=== PATIENT | female | born 1945 | race Caucasian/White ===

== ENCOUNTER → 2017-04-19 | Outpatient (CLI) | payer MEDICARE | END | disposition home or self-care (01) | LOC: CFH 09:03 | PROVIDERS: ATTEND Orthopaedic Surgery | DX: S83.281A Other tear of lateral meniscus, current injury, right knee, initial encounter (principal); M94.261 Chondromalacia, right knee; M25.461 Effusion, right knee; X58.XXXA Exposure to other specified factors, initial encounter; Y93.89 Activity, other specified; Y92.89 Other specified places as the place of occurrence of the external cause; Y99.8 Other external cause status ==

== ENCOUNTER → 2017-05-19 | Outpatient (CLI) | payer MEDICARE ==
[2017-05-19 09:21] LABS: BASOPHILS # (AUTO) 0.04 x10^3/uL (0-0.1); BASOPHILS % (AUTO) 1 % (0-1); EOSINOPHILS # (AUTO) 0.25 x10^3/uL (0-0.4); EOSINOPHILS % (AUTO) 3 % (1-7); LYMPHOCYTES % (AUTO) 23 % (22-44); MD NO; MEAN CORPUSCULAR HEMOGLOBIN 30.6 pg (27.0-34.8); MEAN CORPUSCULAR HGB CONC 34.1 g/dL (32.4-35.8); MEAN CORPUSCULAR VOLUME 89.8 fL (80-100); MEAN PLATELET VOLUME 9.1 fL (7.4-10.4); MONOCYTES # (AUTO) 0.64 x10^3/uL (0.2-0.8); MONOCYTES % (AUTO) 8 % (2-9); NEUTROPHILS # (AUTO) 5.59 x10^3/uL (1.8-6.8); NEUTROPHILS % (AUTO) 66 % (42-75); PLATELET COUNT 283 x10^3/uL (130-400); RED BLOOD COUNT 5.11 x10^6/uL (3.82-5.3); RED CELL DISTRIBUTION WIDTH 12.5 % (9.6-15.2)
[2017-05-19 09:31] LABS: MICROSCOPIC AUTO
[2017-05-19 09:35] LABS: ANION GAP 5 mmol/L (5-15); CALCIUM 9.4 mg/dL (8.5-10.1); CHLORIDE 107 mmol/L (98-107); CREATININE 0.84 mg/dL (0.55-1.02)
[2017-05-19 09:46] LABS: CULTURE INDICATED? YES
[2017-05-19 09:49] LABS: INTERNATIONAL NORMALIZED RATIO 0.98 (0.93-1.1); PROTHROMBIN TIME 10.1 Seconds (9.6-11.5)
[2017-05-19 12:16] LABS: HEMOGLOBIN A1C 5.8 % (4.2-6.3)
== END | disposition home or self-care (01) ==
LOC: STAR 08:16
PROVIDERS: ATTEND Orthopaedic Surgery
DX: Z01.818 Encounter for other preprocedural examination (principal); M17.11 Unilateral primary osteoarthritis, right knee
CPT/HCPCS: 36415; 80048; 81001; 83036; 85025; 85610; 85730; 87077; 87081; 87086; 87147; 87186; 87806; 93005; G0475

== ENCOUNTER 2017-05-29 09:14 | Inpatient (IN) | payer MEDICARE ==
[~2017-05-29] VITALS: Ht 157.5 cm; Wt 25.0 kg
[~2017-05-29 09:14] MED LIST: EPINEPHRINE 1 MG/ML, 1ML ONE; KETOROLAC 60 MG/2 ML ONE; ROPIvacaine/PF 0.2%, 20 ML ONE; TRANEXAMIC ACID 100 MG/ML, 10ML ONE
[2017-05-29] MEDS ORDERED: LACTATED RINGERS 1,000 ML IV SCH (10:25)
[2017-05-29] MEDS ORDERED: FENTANYL PF 100 MCG/2ML ONE (10:26)
[2017-05-29] MEDS ORDERED: MIDAZOLAM 1 MG/ML, 2ML ONE (10:26)
[2017-05-29] MEDS ORDERED: ONDANSETRON 2MG/ML, 2ML ONE (10:27)
[2017-05-29] MEDS ORDERED: LIDOCAINE 2%, 10ML ONE (10:27)
[2017-05-29] MEDS ORDERED: DEXAMETHASONE 4 MG/ML, 1ML ONE (10:27)
[2017-05-29] MEDS ORDERED: PROPOFOL 10 MG/ML, 20ML ONE (10:27)
[2017-05-29] MEDS ORDERED: BUPIVACAINE/PF 0.25% ONE (10:27)
[2017-05-29] MEDS ORDERED: CEFAZOLIN 1,000 MG ONE (10:27)
[2017-05-29] MEDS ORDERED: ACETAMINOPHEN 500 MG TABLET PO ONE (10:30)
[2017-05-29] MEDS ORDERED: VANCOMYCIN PER PHARMACY MC PRN (10:30)
[2017-05-29] MEDS ORDERED: ONDANSETRON ODT 8 MG PO ONE (10:30)
[2017-05-29] MEDS ORDERED: GABAPENTIN 300 MG CAPSULE PO ONE (10:30)
[2017-05-29] MEDS ORDERED: LIDOCAINE-MPF 1%, 2ML INFIL ONE (10:30)
[2017-05-29] MEDS ORDERED: NITR100C PO (10:43)
[2017-05-29] MEDS ORDERED: MUPI22OI2 NS (10:43)
[2017-05-29] MEDS ORDERED: VANCOMYCIN 1,200 MG in SODIUM CHLORIDE 0.9% 250 ML IV ONE (11:00)
[2017-05-29] MEDS ORDERED: PHARMACOKINETIC CONSULTATION MC ONE (11:00)
[2017-05-29] MEDS ORDERED: SCOPOLAMINE PATCH, 1.5MG PATCH.TD72 TD ONE ×2 (11:08→11:30)
[2017-05-29] MEDS ORDERED: HYDROmorphone 1 MG/ML, 1ML IV PRN (11:30)
[2017-05-29] MEDS ORDERED: ONDANSETRON 2MG/ML, 2ML IV PRN (11:30)
[2017-05-29] MEDS ORDERED: DIPHENHYDRAMINE 50 MG CAPSULE PO PRN (11:30)
[2017-05-29] MEDS ORDERED: ACETAMINOPHEN 650 MG/20.3 ML UDC PO PRN (11:30)
[2017-05-29] MEDS ORDERED: SENNA/DOCUSATE TABLET PO PRN (11:30)
[2017-05-29] MEDS ORDERED: ALUMINUM/MAG/SIMETHICONE 30 ML UDC PO PRN (11:30)
[2017-05-29] MEDS ORDERED: ONDANSETRON 4 MG TABLET PO PRN (11:30)
[2017-05-29] MEDS ORDERED: MAGNESIUM HYDROXIDE 8%, 30ML UDC PO PRN (11:30)
[2017-05-29] MEDS ORDERED: DIAZEPAM 5 MG TABLET PO PRN (11:30)
[2017-05-29] MEDS ORDERED: MEPERIDINE/PF 50 MG/ML ONE (11:55)
[2017-05-29] MEDS ORDERED: FENTANYL PF 100 MCG/2ML IV PRN (12:00)
[2017-05-29] MEDS ORDERED: ALBUTEROL SULFATE 2.5 MG/3 ML NPPB PRN (12:00)
[2017-05-29] MEDS ORDERED: OXYcodone 5 MG/5 ML ORAL.SOL UDC PO PRN (12:00)
[2017-05-29] MEDS ORDERED: MIDAZOLAM 1 MG/ML, 2ML IV PRN (12:00)
[2017-05-29] MEDS ORDERED: morphine SULFATE 10 MG/ML, 1ML IV PRN (12:00)
[2017-05-29] MEDS ORDERED: ONDANSETRON 2MG/ML, 2ML IVPush PRN (12:00)
[2017-05-29] MEDS ORDERED: ALBUTEROL/IPRATROPIUM 2.5MG/0.5MG, 3 ML NPPB PRN (12:00)
[2017-05-29] MEDS ORDERED: MEPERIDINE/PF 25MG/0.5ML IVPush PRN (12:00)
[2017-05-29] MEDS ORDERED: LABETALOL 5MG/ML, 20ML IV PRN (12:00)
[2017-05-29] MEDS ORDERED: DIAZEPAM 5 MG/ML, 2ML IVPush PRN (12:00)
[2017-05-29] MEDS ORDERED: LORazepam 2 MG/ML, 1ML IVPush PRN (12:00)
[2017-05-29] MEDS ORDERED: PROMETHAZINE 25 MG/ML, 1ML IV PRN (12:00)
[2017-05-29] MEDS ORDERED: hydrALAzine 20 MG/ML, 1ML IV PRN (12:00)
[2017-05-29] MEDS ORDERED: TRANEXAMIC ACID 1,000 MG in SODIUM CHLORIDE 0.9% 100 ML IVPB ONE (13:00)
[2017-05-29] MEDS: D5%-0.45NACL+KCL 20MEQ 1,000 ML IV SCH ×2 (14:30→20:07)
[2017-05-29 14:35] VITALS: BP 118/72
[2017-05-29] MEDS: OXYcodone IR 5MG TABLET PO PRN ×4 (15:04→21:20)
[2017-05-29] MEDS: ASPIRIN 81 MG TABLET EC PO SCH (18:51)
[2017-05-29] MEDS: CEFAZOLIN PMX 1GM/50ML 50 ML IVPB SCH (20:01)
[2017-05-29] MEDS: DOCUSATE 100 MG CAPSULE PO SCH (20:01)
[2017-05-29 20:37] VITALS: BP 119/71
[2017-05-29] MEDS ORDERED: VANCOMYCIN PMX 1GM/200ML 200 ML IVPB ONE (23:30)
[2017-05-30 00:36] VITALS: BP 118/70
[2017-05-30] MEDS: OXYcodone IR 5MG TABLET PO PRN (01:43)
[2017-05-30] MEDS: CEFAZOLIN PMX 1GM/50ML 50 ML IVPB SCH (03:29)
[2017-05-30] MEDS: ASPIRIN 81 MG TABLET EC PO SCH (04:48)
[2017-05-30] MEDS ORDERED: DEXAMETHASONE 4 MG/ML, 1ML IVPush SCH (06:00)
[2017-05-30 08:04] VITALS: BP 113/66
[2017-05-30] MEDS ORDERED: CELE200C PO (08:58)
[2017-05-30] MEDS ORDERED: DOCU-131 PO (08:58)
[2017-05-30] MEDS ORDERED: TRAM50TA2 PO (08:58)
[2017-05-30] MEDS ORDERED: ONDA4TAB10 PO (08:58)
[2017-05-30] MEDS ORDERED: DIAZ5TAB PO (08:58)
[2017-05-30] MEDS ORDERED: OXYC5CAP2 PO (08:58)
[2017-05-30] MEDS ORDERED: ASPI-621 PO (08:58)
[2017-05-30] MEDS ORDERED: TAMSULOSIN 0.4 MG CAP.ER.24H PO SCH (09:00)
[2017-05-30] MEDS: DOCUSATE 100 MG CAPSULE PO SCH (09:22)
[2017-05-30] MEDS ORDERED: KETOROLAC 30 MG/1 ML IV SCH (14:30)
== END 2017-05-30 10:16 | disposition home or self-care (01) | DRG 470 ==
LOC: ORIP 09:14 → 4NOR 14:17 → DCLOUNGE 05-30 09:54
PROVIDERS: ADMIT Orthopaedic Surgery; ATTEND Orthopaedic Surgery
PROC: 0SRC069 Replacement of Right Knee Joint with Oxidized Zirconium on Polyethylene Synthetic Substitute, Cemented, Open Approach (ICD-10-PCS; principal; 2017-05-29 11:30)
DX: M17.11 Unilateral primary osteoarthritis, right knee (principal); K21.9 Gastro-esophageal reflux disease without esophagitis; Z88.8 Allergy status to other drugs, medicaments and biological substances
CPT/HCPCS: 36415; 85014; 85018; C1713; J0171; J0690; J1100; J1885; J2175; J2250; J2405; J2704; J2795; J3010; J3370; J3490; Q0162; C1776; J3480; J7050; J7120